=== PATIENT | female | born 1975 | race Hispanic/Latino ===

== ENCOUNTER 2019-05-13 04:05 | Emergency (ER) | payer BC ==
[~2019-05-13] VITALS: Ht 157.5 cm; Wt 66.7 kg
[~2019-05-13 04:05] MED LIST: TYLENOL WITH C1 EACH PO
[2019-05-13] MEDS ORDERED: ONDANSETRON HCL INJ 2MG/ML 2ML 2 MG/ML VIAL IV STA (04:11)
[2019-05-13] MEDS ORDERED: SODIUM CHLORIDE 0.9% 1000ML 1,000 ML IV SCH (04:15)
[2019-05-13] MEDS ORDERED: MORPHINE SULFATE INJ 4 MG/ML INJ 1ML IV ONE (04:15)
[2019-05-13] MEDS ORDERED: SODIUM CHLORIDE 0.9% 1000ML 1,000 ML ONE (04:23)
[2019-05-13 04:25] LABS: BILIRUBIN,URINE NEGATIVE (NEGATIVE); CLARITY,URINE CLEAR (CLEAR); COLOR,URINE YELLOW (YELLOW); KETONES,URINE NEGATIVE (NEGATIVE); LEUKOCYTE ESTERASE ,URINE SMALL (NEGATIVE); NITRITE,URINE NEGATIVE (NEGATIVE); PROTEIN,URINE DIPSTICK NEGATIVE (NEGATIVE); URINE UROBILINOGEN 0.2 mg/dL (0.2 - 1)
[2019-05-13] MEDS ORDERED: SODIUM CHLORIDE 0.9% 1000ML 1,000 ML IV STA ×2 (04:25→08:32)
[2019-05-13 04:27] LABS: BASOPHILS % 0.3 % (0.0-1.0); EOSINOPHILS # (AUTO) 0.2 (0.0-0.4); EOSINOPHILS % 2.3 % (0.0-6.0); HEMATOCRIT 39.4 % (34.2-44.1); HEMOGLOBIN 13.1 g/dL (12.0-16.0); LYMPHOCYTES # (AUTO) 3.5 (1.0-3.2); LYMPHOCYTES % 44.7 % (18.0-39.1); MEAN CORPUSCULAR HGB CONC 33.2 g/dL (31-35); MEAN CORPUSCULAR VOLUME 90.4 fL (81-99); MONOCYTES # (AUTO) 0.5 (0.2-0.8); MONOCYTES % 6.7 % (4.4-11.3); NEUTROPHILS # (AUTO) 3.6 (2.1-6.9); NEUTROPHILS % 45.9 % (38.7-80.0); PLATELET COUNT 203 x10e3/uL (140-360); RED BLOOD COUNT 4.36 x10e6/uL (3.6-5.1); RED CELL DISTRIBUTION WIDTH 12.1 % (11.7-14.4)
[2019-05-13] MEDS ORDERED: DIATRIZOATE MEGL/DIATRIZOA SOD 30 ML BTL PO ONE (04:31)
[2019-05-13 04:36] LABS: PREGNANCY TEST, URINE NEGATIVE (NEGATIVE)
[2019-05-13 04:37] LABS: BACTERIA,URINE MODERATE /HPF; EPITHELIAL CELLS,URINE MODERATE /LPF; RBC,URINE 21-50 /HPF (0-5)
[2019-05-13 04:53] LABS: ALANINE AMINOTRANSFERASE 42 IU/L (0-55); ALBUMIN 3.9 g/dL (3.5-5.0); ALBUMIN/GLOBULIN RATIO 1.1 (0.8-2.0); ALKALINE PHOSPHATASE 104 IU/L (40-150); ANION GAP 14.8 mmol/L (8-16); BLOOD UREA NITROGEN 10 mg/dL (7-26); BUN/CREATININE RATIO 13 (6-25); CALCIUM 9.7 mg/dL (8.4-10.2); CARBON DIOXIDE 22 mmol/L (22-29); CHLORIDE 107 mmol/L (98-107); CREATININE, SERUM 0.76 mg/dL (0.57-1.11); EST GLOMERULAR FILTRATION RATE > 60 ML/MIN (60-); GLUCOSE 122 mg/dL (74-118); POTASSIUM 3.8 mmol/L (3.5-5.1); SODIUM 140 mmol/L (136-145)
[2019-05-13 04:54] LABS: AMYLASE 47 U/L (25-125); LIPASE 27 U/L (8-78)
[2019-05-13] MEDS ORDERED: SODIUM CHLORIDE 0.9% 50ML 50 ML ONE (05:24)
[2019-05-13] MEDS ORDERED: IOPAMIDOL 370 MG/ML 200 ML INFUS..BTL INJ ONE (05:25)
--- NOTE | 2019-05-13 06:26 | NUR ---
PT AWAKE ALERT SKIN W/D RESP NONLAB, NAD NOTED. AWAITING CT RESULTS. FAMILY AT BEDSIDE
--- NOTE | 2019-05-13 06:40 | Diagnostic Imaging Report ---
ADDENDUM #1 With history of left oophorectomy, the cystic left adnexal lesion is indeterminate. Signed by: Dr. Darien Jeffrey MD on 05/13/2019 6:50 AM ORIGINAL REPORT EXAM: CT Abdomen and Pelvis WITH contrast INDICATION: ^llq pain ^[id number] ^0525 ^Y COMPARISON: None. TECHNIQUE: Abdomen and pelvis were scanned utilizing a multidetector helical scanner from the lung base to the pubic symphysis after administration of IV contrast. Coronal and sagittal reformations were obtained. Dose modulation, iterative reconstruction, and/or weight based adjustment of the mA/kV was utilized to reduce the radiation dose to as low as reasonably achievable. Routine protocol was performed. Scan was performed when during portal venous phase. IV CONTRAST: 100 mL of Isovue-370 ORAL CONTRAST: Gastroview COMPLICATIONS: None RADIATION DOSE: Total DLP: 346.08 mGy*cm Estimated effective dose: (DLP x 0.015 x size factor) mSv CTDIvol has been reviewed. It is below the limits set by the Radiation Protocol Committee (RPC). FINDINGS: LINES and TUBES: None. LOWER THORAX: Unremarkable HEPATOBILIARY: Hepatic steatosis. No focal hepatic lesions. No biliary ductal dilation. GALLBLADDER: No radio-opaque stones or sludge. No wall thickening. SPLEEN: No splenomegaly. PANCREAS: No focal masses or ductal dilatation. ADRENALS: No adrenal nodules KIDNEYS/URETERS: Questionable minimal delayed left nephrogram compared to the contralateral side. No right hydronephrosis. No cystic or solid mass lesions. 5 mm right midpole calculus. Mild left hydroureteronephrosis. The distal left ureter is normal in caliber. GI TRACT: No abnormal distention, wall thickening, or evidence of bowel obstruction. Appendix is normal. PELVIC ORGANS/BLADDER: 3 cm left ovarian cyst. Bladder is under distended, demonstrating wall thickening. LYMPH NODES: No lymphadenopathy. VESSELS: Unremarkable. PERITONEUM / RETROPERITONEUM: No free air or fluid. BONES: Left superior acetabular sclerotic focus there is also an ill-defined left femoral head sclerosis measuring approximately 1.8 cm. SOFT TISSUES: Unremarkable. IMPRESSION: 1. Mild left hydroureteronephrosis without evidence of obstructive calculus. The distal left ureter is not distended and the change in caliber occurs approximately at level of the 3 cm left ovarian cyst, raising the possibility of mass effect from this 3 cm cystic lesion on distal left ureter and resultant proximal dilatation. 2. Subcentimeter nonobstructive right renal calculus. 3. Hepatic steatosis. Signed by: Dr. Darien Jeffrey MD on 05/13/2019 6:37 AM
[2019-05-13] MEDS ORDERED: KETOROLAC TROMETHAMINE 30 MG/ML VIAL IV STA (06:48)
--- NOTE | 2019-05-13 06:48 | NUR ---
REPORT TO MANDA PATEL
--- NOTE | 2019-05-13 09:06 | Diagnostic Imaging Report ---
TECHNIQUE: Transabdominal and transvaginal ultrasound imaging of the pelvis was performed, transvaginal images were medically necessary to further assess the adnexa. Color Doppler evaluation was utilized to supplement the evaluation. HISTORY: Left adnexal cyst, status post left oophorectomy, reported history of endometriosis COMPARISON: CT of the pelvis May 13, 2019. DISCUSSION: UTERUS: The uterus measures 8 cm x 3 cm x 4 cm. The endometrial echocomplex measures 1.1 cm. OVARIES/ADNEXA: The right ovary measures 4 cm x 3 cm x 3 cm. A 2.2 x 1.8 x 2.5 cm cyst with internal echogenicity with a somewhat reticulated appearance. A trace amount nonspecific fluid within the right fallopian tube. The left ovary is not visualized, compatible with the provided history of nephrectomy. At the left adnexa, a 3.3 x 2.9 x 2.2 cm cystic focus with internal echogenicity. PELVIS: No free fluid. IMPRESSION: 1. Left adnexal cyst, the most likely working diagnosis is a peritoneal inclusion cyst. The amount of internal echogenicity is less than expected for an endometrioma.. 2. Right ovarian cyst suggestive of a hemorrhagic cyst. 3. Recommendation: Recommend a follow-up ultrasound in 6 weeks to further evaluate these findings. Discussed with Dr. Reyna via phone on May 13, 2019 at 0901. Signed by: Dr. Paco Tejada D.O., M.M.M. on 05/13/2019 9:03 AM
[2019-05-13 09:27] LABS: BILIRUBIN,URINE NEGATIVE (NEGATIVE); CLARITY,URINE CLEAR (CLEAR); KETONES,URINE NEGATIVE (NEGATIVE); LEUKOCYTE ESTERASE ,URINE NEGATIVE (NEGATIVE); NITRITE,URINE NEGATIVE (NEGATIVE); PROTEIN,URINE DIPSTICK NEGATIVE (NEGATIVE); URINE UROBILINOGEN 0.2 mg/dL (0.2 - 1)
[2019-05-13 09:28] LABS: COLOR,URINE STRAW (YELLOW)
[2019-05-13 09:48] LABS: BACTERIA,URINE RARE /HPF; EPITHELIAL CELLS,URINE FEW /LPF; RBC,URINE 0-5 /HPF (0-5); WBC,URINE (MAN) 0-5 /HPF (0-5)
[2019-05-13] MEDS ORDERED: HYDROCODONE/APAP 10MG-325MG TAB PO NR (10:00)
== END 2019-05-13 10:30 | disposition home or self-care (01) ==
LOC: ER 04:05
DX: R10.32 Left lower quadrant pain (principal); N83.201 Unspecified ovarian cyst, right side
CPT/HCPCS: 36415; 74177; 76830; 76856; 80053; 81001; 81025; 82150; 83690; 85025; 87086; 96374; 96375; 99284; J1885; J2270; J2405; J7030; Q9967

== ENCOUNTER 2022-04-09 15:12 | Inpatient (IN) | payer BC ==
[~2022-04-09] VITALS: Ht 157.5 cm; Wt 66.7 kg
[2022-04-09] MEDS ORDERED: KETOROLAC TROMETHAMINE 30 MG/ML VIAL IV STA (15:39)
[2022-04-09] MEDS ORDERED: SODIUM CHLORIDE 0.9% 1000ML 1,000 ML IV ONE (15:45)
[2022-04-09] MEDS ORDERED: ONDANSETRON HCL INJ 2MG/ML 2ML 2 MG/ML VIAL IV PRN (15:45)
[2022-04-09 15:47] LABS: BASOPHILS % 0.2 % (0.0-1.0); EOSINOPHILS % 0.3 % (0.0-6.0); HEMATOCRIT 41.5 % (34.2-44.1); HEMOGLOBIN 14.1 g/dL (12.0-16.0); LYMPHOCYTES % 11.4 % (18.0-39.1); MEAN CORPUSCULAR HEMOGLOBIN 31.1 pg (28-32); MEAN CORPUSCULAR VOLUME 91.4 fL (81-99); MONOCYTES # (AUTO) 0.5 (0.2-0.8); NEUTROPHILS # (AUTO) 7.1 (2.1-6.9); NEUTROPHILS % 81.8 % (38.7-80.0); PLATELET COUNT 192 x10e3/uL (140-360); RED BLOOD COUNT 4.54 x10e6/uL (3.6-5.1)
[2022-04-09 16:10] LABS: ALBUMIN 4.6 g/dL (3.5-5.0); ALBUMIN/GLOBULIN RATIO 1.1 (0.8-2.0); ANION GAP 15.5 mmol/L (8-16); CALCIUM 9.3 mg/dL (8.4-10.2); CREATININE, SERUM 0.87 mg/dL (0.57-1.11); POTASSIUM 3.5 mmol/L (3.5-5.1)
[2022-04-09] MEDS ORDERED: Morphine 4mg INJECTION 4 MG/ML INJ IV PRN (16:15)
[2022-04-09 16:28] LABS: CLARITY,URINE CLOUDY (CLEAR); COLOR,URINE YELLOW (YELLOW); KETONES,URINE TRACE (NEGATIVE); LEUKOCYTE ESTERASE ,URINE TRACE (NEGATIVE); NITRITE,URINE NEGATIVE (NEGATIVE); PROTEIN,URINE DIPSTICK 2+ (NEGATIVE); URINE UROBILINOGEN 0.2 mg/dL (0.2 - 1)
[2022-04-09 16:29] LABS: BACTERIA,URINE MANY /HPF; EPITHELIAL CELLS,URINE MANY /LPF; RBC,URINE >50 /HPF (0-5); WBC,URINE (MAN) >50 /HPF (0-5)
[2022-04-09 16:30] LABS: MUCUS,URINE FEW (RARE)
[2022-04-09] MEDS: Vancomycin IV 1 GM in SODIUM CHLORIDE 0.9% 250ML 250 ML IV SCH (18:06)
[2022-04-09] MEDS: SODIUM CHLORIDE 0.9% 1000ML 1,000 ML IV SCH ×2 (18:06→23:31)
[2022-04-09] MEDS: TAMSULOSIN HCL 0.4 MG CAP PO SCH (20:45)
[2022-04-09 22:56] VITALS: BP 126/78
[2022-04-09] MEDS ORDERED: AMLODIPINE BESYL5 MG PO (23:00)
[2022-04-09 23:01] VITALS: BP 126/78
[2022-04-09] MEDS: Morphine 4mg INJECTION 4 MG/ML INJ IV PRN (23:31)
[2022-04-10] VITALS (8 sets, daily range): BP systolic 97–119; BP diastolic 63–72
[2022-04-10] MEDS: Vancomycin IV 1 GM in SODIUM CHLORIDE 0.9% 250ML 250 ML IV SCH ×2 (06:24→17:53)
[2022-04-10] MEDS: SODIUM CHLORIDE 0.9% 1000ML 1,000 ML IV SCH ×2 (09:54→17:21)
[2022-04-10] MEDS: Morphine 4mg INJECTION 4 MG/ML INJ IV PRN (16:30)
[2022-04-10] MEDS: ONDANSETRON HCL INJ 2MG/ML 2ML 2 MG/ML VIAL IV PRN (16:30)
[2022-04-10] MEDS: TAMSULOSIN HCL 0.4 MG CAP PO SCH (21:45)
[2022-04-11 01:32] VITALS: BP 107/75
[2022-04-11 04:40] VITALS: BP 113/70
[2022-04-11] MEDS: SODIUM CHLORIDE 0.9% 1000ML 1,000 ML IV SCH ×2 (05:53→09:45)
[2022-04-11] MEDS: Vancomycin IV 1 GM in SODIUM CHLORIDE 0.9% 250ML 250 ML IV SCH (06:45)
[2022-04-11 07:02] LABS: BASOPHILS % 0.3 % (0.0-1.0); EOSINOPHILS # (AUTO) 0.2 (0.0-0.4); EOSINOPHILS % 2.8 % (0.0-6.0); HEMATOCRIT 34.3 % (34.2-44.1); HEMOGLOBIN 11.8 g/dL (12.0-16.0); LYMPHOCYTES # (AUTO) 2.1 (1.0-3.2); LYMPHOCYTES % 35.2 % (18.0-39.1); MEAN CORPUSCULAR HEMOGLOBIN 31.1 pg (28-32); MEAN CORPUSCULAR HGB CONC 34.4 g/dL (31-35); MEAN CORPUSCULAR VOLUME 90.5 fL (81-99); MONOCYTES # (AUTO) 0.6 (0.2-0.8); MONOCYTES % 9.6 % (4.4-11.3); NEUTROPHILS # (AUTO) 3.1 (2.1-6.9); NEUTROPHILS % 51.9 % (38.7-80.0); PLATELET COUNT 160 x10e3/uL (140-360); RED BLOOD COUNT 3.79 x10e6/uL (3.6-5.1); RED CELL DISTRIBUTION WIDTH 12.1 % (11.7-14.4)
[2022-04-11 07:37] LABS: ANION GAP 16.7 mmol/L (8-16); CALCIUM 8.5 mg/dL (8.4-10.2); CREATININE, SERUM 0.71 mg/dL (0.57-1.11); POTASSIUM 3.7 mmol/L (3.5-5.1)
[2022-04-11] MEDS ORDERED: B&O 60MG R/S 60 MG SUPP PR ONE (08:22)
[2022-04-11] MEDS ORDERED: IOPAMIDOL 300MG/ML 100 ML INFUS..BTL IV ONE (08:24)
[2022-04-11 09:35] VITALS: BP 113/75
[2022-04-11 09:56] VITALS: BP 113/75
[2022-04-11] MEDS ORDERED: B&O 60MG R/S 60 MG SUPP PR PRN (10:15)
[2022-04-11] MEDS ORDERED: PHENAZOPYRIDINE HCL 100 MG TAB PO PRN (10:15)
[2022-04-11] MEDS ORDERED: POVIDONE IODINE 0.05% 0.05 % ML PO ONE (12:21)
[2022-04-11] MEDS ORDERED: DEXAMETHASONE SOD PHOS INJ 4 MG/ML SDV ONE (12:21)
[2022-04-11] MEDS ORDERED: PROPOFOL IV EMULSION 10 MG/ML 20 ML VIAL ONE (12:21)
[2022-04-11] MEDS ORDERED: KETOROLAC TROMETHAMINE 30 MG/ML VIAL ONE (12:21)
[2022-04-11] MEDS ORDERED: SEVOFLURANE INHAL SOLN 250 ML PEN BTL ONE (12:21)
[2022-04-11] MEDS ORDERED: LIDOCAINE HCL 2% LOCAL INJ 5 ML SDV VIAL INJ ONE (12:21)
[2022-04-11] MEDS ORDERED: ONDANSETRON HCL INJ 2MG/ML 2ML 2 MG/ML VIAL ONE (12:21)
[2022-04-11 12:26] VITALS: BP 114/71
[2022-04-11] MEDS ORDERED: MIDAZOLAM HCL 2 MG/2 ML VIAL ONE (12:49)
[2022-04-11] MEDS ORDERED: FENTANYL CITRATE/PF 100MCG/2 ML INJ ONE (12:49)
[2022-04-11] MEDS: Morphine 4mg INJECTION 4 MG/ML INJ IV PRN (14:57)
[2022-04-11] MEDS: ONDANSETRON HCL INJ 2MG/ML 2ML 2 MG/ML VIAL IV PRN (14:57)
[2022-04-11] MEDS ORDERED: ONDANSETRON HCL 4 MG ORAL DISINTEGRATING TAB PO PRN (16:00)
[2022-04-12] MEDS ORDERED: SOLIFENACIN SUCCINATE 5 MG TAB PO SCH (09:00)
== END 2022-04-11 16:31 | disposition home or self-care (01) | DRG 661 ==
LOC: ER 16:06 → ERHOLD 17:34 → MED/SURG3 21:15
PROVIDERS: ADMIT Internal Medicine; ATTEND Internal Medicine
PROC: 0TC68ZZ Extirpation of Matter from Right Ureter, Via Natural or Artificial Opening Endoscopic (ICD-10-PCS; 2022-04-11)
PROC: BT141ZZ Fluoroscopy of Kidneys, Ureters and Bladder using Low Osmolar Contrast (ICD-10-PCS; principal; 2022-04-11 09:29)
PROC: 0T768DZ Dilation of Right Ureter with Intraluminal Device, Via Natural or Artificial Opening Endoscopic (ICD-10-PCS; 2022-04-11 09:29)
DX: N13.6 Pyonephrosis (principal); I10 Essential (primary) hypertension; N21.0 Calculus in bladder; B95.2 Enterococcus as the cause of diseases classified elsewhere; N81.10 Cystocele, unspecified; N81.6 Rectocele; N36.41 Hypermobility of urethra; Z87.442 Personal history of urinary calculi; Z88.1 Allergy status to other antibiotic agents; Z20.822 Contact with and (suspected) exposure to COVID-19; Z90.721 Acquired absence of ovaries, unilateral
CPT/HCPCS: 0223U; 36415; 74018; 74176; 74420; 80048; 80053; 80202; 81001; 83970; 84550; 84702; 85025; 87086; 87186; 88300; 99284; C1758; C1874; J0696; J1100; J1885; J2001; J2250; J2270; J2405; J3010; J3370; J7030; J7050; Q9967

== ENCOUNTER 2022-05-10 23:12 | Inpatient (IN) | payer BC ==
[~2022-05-10] VITALS: Ht 157.5 cm; Wt 66.7 kg
[~2022-05-10 23:12] MED LIST changes: +AMLODIPINE BESYL5 MG PO
[2022-05-10] MEDS ORDERED: ACETAMINOPHEN 325 MG TAB PO ONE (23:30)
[2022-05-10] MEDS ORDERED: CEFEPIME 2 GM in SODIUM CHLORIDE 0.9% 100 ML IV ONE (23:30)
[2022-05-10] MEDS ORDERED: SODIUM CHLORIDE 0.9% 1000ML 1,000 ML IV ONE (23:30)
[2022-05-10 23:43] LABS: BASOPHILS % 0.2 % (0.0-1.0); HEMATOCRIT 45.1 % (34.2-44.1); LYMPHOCYTES # (AUTO) 1.1 (1.0-3.2); LYMPHOCYTES % 6.7 % (18.0-39.1); MEAN CORPUSCULAR HEMOGLOBIN 30.7 pg (28-32); MEAN CORPUSCULAR HGB CONC 33.3 g/dL (31-35); MEAN CORPUSCULAR VOLUME 92.2 fL (81-99); MONOCYTES # (AUTO) 1.4 (0.2-0.8); MONOCYTES % 8.8 % (4.4-11.3); NEUTROPHILS # (AUTO) 13.5 (2.1-6.9); NEUTROPHILS % 83.9 % (38.7-80.0); PLATELET COUNT 188 x10e3/uL (140-360); RED BLOOD COUNT 4.89 x10e6/uL (3.6-5.1); RED CELL DISTRIBUTION WIDTH 11.4 % (11.7-14.4)
[2022-05-10 23:55] LABS: CLARITY,URINE CLOUDY (CLEAR); COLOR,URINE AMBER (YELLOW); KETONES,URINE 1+ (NEGATIVE); LEUKOCYTE ESTERASE ,URINE SMALL (NEGATIVE); NITRITE,URINE POSITIVE (NEGATIVE); PROTEIN,URINE DIPSTICK >=300 (NEGATIVE); URINE UROBILINOGEN 0.2 mg/dL (0.2 - 1)
[2022-05-10 23:58] LABS: BACTERIA,URINE MANY /HPF; EPITHELIAL CELLS,URINE FEW /LPF; WBC,URINE (MAN) 21-50 /HPF (0-5)
[2022-05-11 00:03] LABS: ALBUMIN 4.2 g/dL (3.5-5.0); ALBUMIN/GLOBULIN RATIO 0.8 (0.8-2.0); ANION GAP 19.4 mmol/L (8-16); CALCIUM 10.6 mg/dL (8.4-10.2); CREATININE, SERUM 1.24 mg/dL (0.57-1.11); POTASSIUM 3.4 mmol/L (3.5-5.1)
[2022-05-11 00:09] LABS: CREATINE KINASE MB 0.9 ng/mL (0-5.0)
[2022-05-11] MEDS ORDERED: IBUPROFEN 600 MG TAB PO STA (00:47)
[2022-05-11] MEDS ORDERED: SODIUM CHLORIDE 0.9% 1000ML 1,000 ML IV ONE ×2 (01:00→13:30)
[2022-05-11] MEDS ORDERED: SODIUM CHLORIDE 0.9% 1000ML 1,000 ML IV SCH (01:15)
[2022-05-11] MEDS ORDERED: Morphine 4mg INJECTION 4 MG/ML INJ IV PRN (01:15)
[2022-05-11] MEDS ORDERED: ONDANSETRON HCL INJ 2MG/ML 2ML 2 MG/ML VIAL IV PRN (01:15)
[2022-05-11] MEDS ORDERED: CEFEPIME 2 GM in SODIUM CHLORIDE 0.9% 100 ML IV SCH (06:00)
[2022-05-11 08:27] VITALS: BP 101/70
[2022-05-11] MEDS ORDERED: TYLENOL #3 PO (09:01)
[2022-05-11] MEDS ORDERED: VITAMIN D250 MCG PO ×2 (09:01→09:23)
[2022-05-11 09:05] VITALS: BP 101/70
[2022-05-11] MEDS: CEFEPIME 2 GM in SODIUM CHLORIDE 0.9% 100 ML IV SCH ×3 (09:19→23:39)
[2022-05-11 13:00] VITALS: BP 114/68
[2022-05-11] MEDS ORDERED: POLYETHYLENE GLYCOL 3350 17 GM PACK PO PRN (13:15)
[2022-05-11] MEDS ORDERED: TEMAZEPAM 15 MG CAP PO PRN (13:15)
[2022-05-11] MEDS ORDERED: HYDRALAZINE HCL 20 MG/ML VIAL IV PRN (13:15)
[2022-05-11] MEDS ORDERED: CHOLESTYRAMINE 4 GM PACKET PO PRN (13:45)
[2022-05-11] MEDS ORDERED: ACETAMIN/BUTALBITAL/CAFFEINE TAB PO ONE (14:00)
[2022-05-11] MEDS ORDERED: BENAZEPRIL HCL10 MG PO (14:48)
[2022-05-11] MEDS ORDERED: [UNRECOGNIZED DRUG - OTHER] SQ (14:48)
[2022-05-11 15:00] VITALS: BP 102/69
[2022-05-11] MEDS: DOCUSATE SODIUM 100 MG CAP PO SCH ×2 (17:00→17:18)
[2022-05-11] MEDS: FAMOTIDINE 20 MG/2 ML VIAL IV SCH (17:18)
[2022-05-11] MEDS: SODIUM CHLORIDE 0.9% 1000ML 1,000 ML IV SCH (17:19)
[2022-05-11] MEDS: ACETAMIN/BUTALBITAL/CAFFEINE TAB PO PRN (18:41)
[2022-05-11 20:00] VITALS: BP 110/70
[2022-05-11] MEDS: ACETAMINOPHEN 325 MG TAB PO PRN (20:08)
[2022-05-11 22:05] VITALS: BP 110/70
[2022-05-12] VITALS (10 sets, daily range): BP systolic 98–109; BP diastolic 62–91
[2022-05-12] MEDS: SODIUM CHLORIDE 0.9% 1000ML 1,000 ML IV SCH ×3 (00:05→16:47)
[2022-05-12] MEDS: ACETAMINOPHEN 325 MG TAB PO PRN (01:13)
[2022-05-12 04:51] LABS: BASOPHILS % 0.2 % (0.0-1.0); EOSINOPHILS % 0.2 % (0.0-6.0); HEMOGLOBIN 11.1 g/dL (12.0-16.0); LYMPHOCYTES # (AUTO) 1.3 (1.0-3.2); LYMPHOCYTES % 11.3 % (18.0-39.1); MEAN CORPUSCULAR HEMOGLOBIN 30.2 pg (28-32); MEAN CORPUSCULAR HGB CONC 31.7 g/dL (31-35); MEAN CORPUSCULAR VOLUME 95.4 fL (81-99); MONOCYTES # (AUTO) 1.1 (0.2-0.8); MONOCYTES % 9.2 % (4.4-11.3); NEUTROPHILS # (AUTO) 9.3 (2.1-6.9); NEUTROPHILS % 78.8 % (38.7-80.0); PLATELET COUNT 126 x10e3/uL (140-360); RED BLOOD COUNT 3.67 x10e6/uL (3.6-5.1); RED CELL DISTRIBUTION WIDTH 11.9 % (11.7-14.4)
[2022-05-12 05:17] LABS: ALBUMIN 2.8 g/dL (3.5-5.0); ALBUMIN/GLOBULIN RATIO 0.7 (0.8-2.0); ANION GAP 13.2 mmol/L (8-16); CREATININE, SERUM 0.78 mg/dL (0.57-1.11); POTASSIUM 3.2 mmol/L (3.5-5.1)
[2022-05-12 05:39] LABS: CHOL/HDL RATIO 4.1 (3.0-3.6); MAGNESIUM 1.5 MG/DL (1.3-2.1); PHOSPHORUS 1.5 MG/DL (2.3-4.7)
[2022-05-12 06:00] LABS: THYROID STIMULATING HORMONE 1.403 uIU/mL (0.350-4.940)
[2022-05-12] MEDS: DOCUSATE SODIUM 100 MG CAP PO SCH ×2 (07:55→16:48)
[2022-05-12] MEDS: FAMOTIDINE 20 MG/2 ML VIAL IV SCH ×2 (08:00→16:48)
[2022-05-12] MEDS: CEFEPIME 2 GM in SODIUM CHLORIDE 0.9% 100 ML IV SCH ×2 (08:00→16:47)
[2022-05-12] MEDS ORDERED: POTASSIUM CHLORIDE 20 MEQ TAB CR PO ONE (19:15)
[2022-05-12] MEDS: ACETAMIN/BUTALBITAL/CAFFEINE TAB PO PRN (22:22)
[2022-05-13] VITALS (12 sets, daily range): BP systolic 94–109; BP diastolic 70–77
[2022-05-13] MEDS: CEFEPIME 2 GM in SODIUM CHLORIDE 0.9% 100 ML IV SCH ×3 (00:08→16:54)
[2022-05-13] MEDS: FAMOTIDINE 20 MG/2 ML VIAL IV SCH ×2 (08:45→16:54)
[2022-05-13] MEDS: DOCUSATE SODIUM 100 MG CAP PO SCH ×2 (08:48→16:54)
[2022-05-13] MEDS: SODIUM CHLORIDE 0.9% 1000ML 1,000 ML IV SCH (16:54)
[2022-05-14] MEDS: CEFEPIME 2 GM in SODIUM CHLORIDE 0.9% 100 ML IV SCH ×3 (00:08→16:23)
[2022-05-14] MEDS: ACETAMIN/BUTALBITAL/CAFFEINE TAB PO PRN (03:40)
[2022-05-14] MEDS: SODIUM CHLORIDE 0.9% 1000ML 1,000 ML IV SCH (03:40)
[2022-05-14 04:00] VITALS: BP 116/73
[2022-05-14 05:50] LABS: BASOPHILS % 0.3 % (0.0-1.0); EOSINOPHILS # (AUTO) 0.1 (0.0-0.4); HEMATOCRIT 30.9 % (34.2-44.1); HEMOGLOBIN 10.3 g/dL (12.0-16.0); LYMPHOCYTES # (AUTO) 1.7 (1.0-3.2); MEAN CORPUSCULAR HEMOGLOBIN 29.9 pg (28-32); MEAN CORPUSCULAR HGB CONC 33.3 g/dL (31-35); MEAN CORPUSCULAR VOLUME 89.8 fL (81-99); MONOCYTES # (AUTO) 0.5 (0.2-0.8); MONOCYTES % 8.5 % (4.4-11.3); NEUTROPHILS # (AUTO) 3.7 (2.1-6.9); NEUTROPHILS % 60.5 % (38.7-80.0); PLATELET COUNT 167 x10e3/uL (140-360); RED BLOOD COUNT 3.44 x10e6/uL (3.6-5.1); RED CELL DISTRIBUTION WIDTH 12.3 % (11.7-14.4)
[2022-05-14 06:18] LABS: CALCIUM 8.9 mg/dL (8.4-10.2); CREATININE, SERUM 0.7 mg/dL (0.57-1.11)
[2022-05-14 07:53] VITALS: BP 109/73
[2022-05-14] MEDS: FAMOTIDINE 20 MG/2 ML VIAL IV SCH (08:59)
[2022-05-14] MEDS: DOCUSATE SODIUM 100 MG CAP PO SCH ×2 (08:59→16:23)
[2022-05-14 09:04] VITALS: BP 109/73
[2022-05-14] MEDS ORDERED: POTASSIUM CHLORIDE 20 MEQ TAB CR PO ONE (10:45)
[2022-05-14] MEDS ORDERED: ONDANSETRON HCL 4 MG ORAL DISINTEGRATING TAB PO PRN (10:45)
[2022-05-14 11:42] VITALS: BP 130/87
[2022-05-14] MEDS ORDERED: AMLODIPINE BESYL5 MG PO (13:06)
[2022-05-14] MEDS ORDERED: CEFUROXIME500 MG PO (13:06)
[2022-05-14] MEDS ORDERED: BENAZEPRIL HCL10 MG PO (13:06)
[2022-05-14] MEDS ORDERED: PHOSPHORUS 250 MG TAB PO ONE (13:45)
[2022-05-14 15:32] VITALS: BP 120/84
[2022-05-14] MEDS ORDERED: FAMOTIDINE 20 MG TAB PO SCH (16:30)
[2022-05-17] MEDS ORDERED: ERGOCALCIFEROL 50,000 UNIT CAP PO SCH (09:00)
== END 2022-05-14 17:45 | disposition home or self-care (01) | DRG 872 ==
LOC: ER 23:20 → ERHOLD 05-11 01:11 → ICU 05-11 12:40 → MED/SURG2 05-13 22:16
PROVIDERS: ADMIT Internal Medicine; ATTEND Internal Medicine
DX: A41.9 Sepsis, unspecified organism (principal); N17.9 Acute kidney failure, unspecified; E87.1 Hypo-osmolality and hyponatremia; N10 Acute pyelonephritis; E83.52 Hypercalcemia; E87.6 Hypokalemia; Z96.0 Presence of urogenital implants; Z93.6 Other artificial openings of urinary tract status; E86.0 Dehydration; I10 Essential (primary) hypertension; B96.20 Unspecified Escherichia coli [E. coli] as the cause of diseases classified elsewhere; Z88.0 Allergy status to penicillin; Z87.442 Personal history of urinary calculi; Z90.721 Acquired absence of ovaries, unilateral; Z83.3 Family history of diabetes mellitus; Z84.1 Family history of disorders of kidney and ureter; Z20.822 Contact with and (suspected) exposure to COVID-19
CPT/HCPCS: 36415; 71045; 74176; 80048; 80053; 80061; 81001; 82550; 82553; 83036; 83605; 83735; 84100; 84443; 84484; 84702; 85025; 87040; 87086; 87186; 87400; 93005; 94799; 99251; 99285; J0692; J2405; J7030; J7050

== ENCOUNTER → 2023-01-03 | Outpatient (CLI) | payer BC ==
[~2023-01-03] MED LIST changes: +BENAZEPRIL HCL10 MG PO; +CEFUROXIME500 MG PO; +TYLENOL #3 PO; +VITAMIN D250 MCG PO; +[UNRECOGNIZED DRUG - OTHER] SQ
== END ==
LOC: RAD 12:02
PROVIDERS: ATTEND Urology
DX: N02.0 Recurrent and persistent hematuria with minor glomerular abnormality (principal)
CPT/HCPCS: 74018

== ENCOUNTER → 2023-12-05 | Outpatient (REF) | payer BC | LOC: US 13:40 | PROVIDERS: ATTEND Urology | DX: R31.21 Asymptomatic microscopic hematuria (principal); N20.0 Calculus of kidney | CPT/HCPCS: 76770 ==

== ENCOUNTER → 2023-12-07 | Outpatient (REF) | payer BC | LOC: RAD 15:27 | PROVIDERS: ATTEND Urology | DX: R31.21 Asymptomatic microscopic hematuria (principal); N20.0 Calculus of kidney | CPT/HCPCS: 74018; 81025 ==

== ENCOUNTER 2024-10-01 07:35 | Emergency (ER) | payer BC ==
[~2024-10-01] VITALS: Ht 157.5 cm; Wt 66.7 kg
[2024-10-01 07:41] VITALS: RESP 17; TEMP 98.4
[2024-10-01] MEDS: ONDANSETRON HCL INJ 2MG/ML 2ML 2 MG/ML VIAL IV STA (08:10)
[2024-10-01] MEDS: KETOROLAC TROMETHAMINE 30 MG/ML VIAL IV STA (08:10)
[2024-10-01] MEDS: SODIUM CHLORIDE 0.9% 1000ML 1,000 ML IV ONE (08:10)
[2024-10-01 08:16] LABS: BASOPHILS % 0.2 % (0.0-1.0); EOSINOPHILS # (AUTO) 0.1 (0.0-0.4); EOSINOPHILS % 1.7 % (0.0-6.0); HEMATOCRIT 37.7 % (34.2-44.1); LYMPHOCYTES # (AUTO) 2.7 (1.0-3.2); LYMPHOCYTES % 33.8 % (18.0-39.1); MEAN CORPUSCULAR HGB CONC 34.5 g/dL (31-35); MEAN CORPUSCULAR VOLUME 89.8 fL (81-99); MONOCYTES # (AUTO) 0.5 (0.2-0.8); MONOCYTES % 5.9 % (4.4-11.3); NEUTROPHILS # (AUTO) 4.7 (2.1-6.9); NEUTROPHILS % 58.3 % (38.7-80.0); PLATELET COUNT 184 x10e3/uL (140-360); RED CELL DISTRIBUTION WIDTH 11.9 % (11.7-14.4); WHITE BLOOD COUNT 8.08 x10e3/uL (4.8-10.8)
[2024-10-01 08:36] LABS: ALANINE AMINOTRANSFERASE 48 IU/L (0-55); ALBUMIN 4.1 g/dL (3.5-5.0); ALBUMIN/GLOBULIN RATIO 1.1 (0.8-2.0); ALKALINE PHOSPHATASE 86 IU/L (40-150); ANION GAP 15.8 mmol/L (8-16); BLOOD UREA NITROGEN 13 mg/dL (7-26); BUN/CREATININE RATIO 16 (6-25); CALCIUM 9.4 mg/dL (8.4-10.2); CARBON DIOXIDE 19 mmol/L (22-29); CHLORIDE 109 mmol/L (98-107); CREATININE, SERUM 0.83 mg/dL (0.57-1.11); EST GLOMERULAR FILTRATION RATE 86 ML/MIN (>=60); GLUCOSE 192 mg/dL (74-118); LIPASE 39 U/L (8-78); POTASSIUM 3.8 mmol/L (3.5-5.1); SODIUM 140 mmol/L (136-145)
[2024-10-01 09:55] VITALS: PULSE 60; O2SAT 99
[2024-10-01 10:48] LABS: CLARITY,URINE CLEAR (CLEAR); COLOR,URINE YELLOW (YELLOW); PH,URINE 6 (5 - 7)
[2024-10-01 10:49] LABS: BILIRUBIN,URINE NEGATIVE (NEGATIVE); GLUCOSE, URINE NEGATIVE (NEGATIVE); KETONES,URINE NEGATIVE (NEGATIVE); LEUKOCYTE ESTERASE ,URINE NEGATIVE (NEGATIVE); NITRITE,URINE NEGATIVE (NEGATIVE); PROTEIN,URINE DIPSTICK NEGATIVE (NEGATIVE); URINE UROBILINOGEN 0.2 mg/dL (0.2 - 1)
[2024-10-01 11:13] LABS: BACTERIA,URINE RARE /HPF; EPITHELIAL CELLS,URINE RARE /LPF; RBC,URINE >50 /HPF (0-5); WBC,URINE (MAN) 0-5 /HPF (0-5)
[2024-10-01] MEDS ORDERED: FLOMAX0.4 MG PO (11:28)
[2024-10-01] MEDS ORDERED: ULTRAM 50MG50 MG PO (11:28)
[2024-10-01] MEDS ORDERED: ONDANSETRON ODT4 MG PO (11:28)
== END 2024-10-01 11:52 | disposition home or self-care (01) ==
LOC: ER 07:43
DX: R10.32 Left lower quadrant pain (principal); N20.1 Calculus of ureter; M54.50 Low back pain, unspecified; R11.0 Nausea; K76.0 Fatty (change of) liver, not elsewhere classified
CPT/HCPCS: 36415; 74176; 80053; 81001; 83690; 84702; 85025; 99284; J1885; J2405